=== PATIENT | female | born 1995 | race Asian ===

== ENCOUNTER 2016-05-02 17:17 | Inpatient (IN) | payer OTHER ==
[2016-05-02 18:41] LABS: Urine Bacteria Absent (Absent); Urine Bilirubin Negative (Negative); Urine Glucose Negative (Negative); Urine Nitrite Negative (Negative)
--- NOTE | 2016-05-02 18:47 | ED ---
Annelise Castaneda Anna, scribed for Mick Cartagena MD on 05/02/16 at 1743 . Psychiatric Complaint - HPI Summary HPI Summary: Patient is a 20 y/o female BIBA to [facility] presenting with gradual onset of intermittent suicidal ideation. If she were to hurt herself, she says she would do it with a knife. Her counselor recommended that she come to the ED to be evaluated. She currently takes hydroxyzine and fluoxetine for her depression. She denies a chance of . LNMP 2 days ago. - History Of Current Complaint Chief Complaint: EDMentalHealth Time Seen by Provider: 05/02/16 17:19 Hx Obtained From: Patient, EMS ?: No Onset/Duration: Gradual Onset Has Suicidal: Reports: Thoughts, With A Plan PMH/Surg Hx/FS Hx/Imm Hx Respiratory History: Denies: Hx Lung Cancer Psychiatric History: Reports: Hx Depression - Family History Known Family History: Negative: Cardiac Disease - Social History Occupation: Student Lives: With Family Alcohol Use: None Hx Substance Use: No Substance Use Type: Reports: None Hx Tobacco Use: No Smoking Status (MU): Never Smoked Tobacco Review of Systems Constitutional: Negative Psychological: Other - Suicidal Ideation Positive: Depressed All Other Systems Reviewed And Are Negative: Yes Physical Exam Triage Information Reviewed: Yes Vital Signs On Initial Exam: Initial Vitals Temp Pulse Resp BP Pulse Ox 98.7 F 72 16 97/64 99 05/02/16 17:39 05/02/16 17:39 05/02/16 17:39 05/02/16 17:39 05/02/16 17:39 Vital Signs Reviewed: Yes Appearance: Positive: Well-Appearing, No Pain Distress Skin: Positive: Warm, Skin Color Reflects Adequate Perfusion, Dry Head/Face: Positive: Normal Head/Face Inspection Eyes: Positive: Normal ENT: Positive: Normal ENT inspection Neck: Positive: Supple, Nontender Respiratory/Lung Sounds: Positive: Clear to Auscultation, Breath Sounds Present Cardiovascular: Positive: RRR Abdomen Description: Positive: Nontender, Soft Bowel Sounds: Positive: Present Musculoskeletal: Positive: Normal Neurological: Positive: Normal Psychiatric: Positive: Affect/Mood Appropriate Diagnostics - Vital Signs Vital Signs Temp Pulse Resp BP Pulse Ox 05/02/16 18:03 98.7 F 72 16 97/64 99 05/02/16 17:39 98.7 F 72 16 97/64 99 - Laboratory Lab Results: Lab Results 05/02/16 Range/Units 17:50 Urine Color Yellow Urine Appearance Clear Urine pH 7.0 (5-9) Ur Specific [place] 1.008 L (1.010-1.030) Urine Protein Negative (Negative) Urine Ketones Negative (Negative) Urine Blood 1+ H (Negative) Urine Nitrate Negative (Negative) Urine Bilirubin Negative (Negative) Urine Urobilinogen Negative (Negative) Ur Leukocyte Esterase Trace H (Negative) Urine WBC (Auto) Trace(0-5/hpf) (Absent) Urine RBC (Auto) Trace(0-2/hpf) (Absent) Ur Squamous Epith Cells Present H (Absent) Urine Bacteria Absent (Absent) Urine Glucose Negative (Negative) Lab Statement: Any lab studies that have been ordered have been reviewed, and results considered in the medical decision making process. Course/Dx - Course Course Of Treatment: She is medically cleared for MHE. - Differential Dx/Clinical Impression Provider Diagnosis: Depression Discharge - Discharge Plan Condition: Stable Disposition: OTHER Discharge Disposition Comment: Dr. Murphy at change of shift The documentation as recorded by the Annelise garcia Anna accurately reflects the service I personally performed and the decisions made by , Mick Cartagena MD.
[2016-05-02 18:51] LABS: Hematocrit 37 % (35-47); Hemoglobin 12.2 g/dl (12.0-16.0); Mean Corpuscular HGB Conc 33 g/dl (31-36); Mean Corpuscular Hemoglobin 30 pg (27-31); Mean Corpuscular Volume 89 fL (80-97); Mean Platelet Volume 9 um3 (7.4-10.4); Red Blood Count 4.14 10^6/ul (4.0-5.4); Red Cell Distribution Width 13 % (10.5-15); White Blood Count 4.7 10^3/ul (3.5-10.8)
[2016-05-02 19:08] LABS: Benzodiazepine Urine Screen None Detected (None Detect)
[2016-05-02 19:27] LABS: TSH (Thyroid Stimulating Horm) 0.67 mcIU/mL (0.34-5.60)
[2016-05-02 19:28] LABS: ALT 7 U/L (7-52); AST 12 U/L (13-39); Albumin 4.2 g/dL (3.2-5.2); Alkaline Phosphatase 44 U/L (34-104); Anion Gap 6 mmol/L (2-11); BUN/Creatinine Ratio 14.8 (8-20); Blood Urea Nitrogen 9 mg/dL (6-24); CO2 Carbon Dioxide 24 mmol/L (22-32); Calcium 9.2 mg/dL (8.6-10.3); Chloride 106 mmol/L (101-111); EGFR African American 162.5 (>60); EGFR Non-African American 126.4 (>60); Globulin 2.7 g/dL (2-4); Glucose 95 mg/dL (70-100); Potassium 3.6 mmol/L (3.5-5.0); Sodium 136 mmol/L (133-145); Total Protein 6.9 g/dL (6.4-8.9)
[2016-05-02 19:34] LABS: Acetaminophen < 15 mcg/mL; Alcohol < 10 mg/dL (<10); Salicylate < 2.50 mg/dL (<30)
[2016-05-02] MEDS ORDERED: hydrOXYzine HCL TAB* 10 MG PO PRN (21:21)
[2016-05-02] MEDS: hydrOXYzine HCL TAB* 10 MG PO SCH (22:08)
[2016-05-03] MEDS: FLUoxetine CAP* 20 MG PO SCH (09:38)
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
[2016-05-03] MEDS: hydrOXYzine HCL TAB* 10 MG PO SCH (21:33)
[2016-05-04] MEDS: FLUoxetine CAP* 20 MG PO SCH (08:46)
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
[2016-05-04] MEDS: hydrOXYzine HCL TAB* 10 MG PO SCH (20:16)
[2016-05-05 08:02] VITALS: BP 93/61
[2016-05-05] MEDS: FLUoxetine CAP* 20 MG PO SCH (08:21)
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
== END 2016-05-05 11:30 | disposition home or self-care (01) | DRG 880 ==
LOC: ED 17:17 → BSU 20:26
PROVIDERS: ADMIT Internal Medicine; ATTEND Psychiatry & Neurology Psychiatry
DX: F43.0 Acute stress reaction (principal); F50.9 Eating disorder, unspecified; F32.9 Major depressive disorder, single episode, unspecified; F60.3 Borderline personality disorder; Z91.410 Personal history of adult physical and sexual abuse; F40.01 Agoraphobia with panic disorder; Z91.5 Personal history of self-harm
CPT/HCPCS: 36415; 80053; 80307; 80320; 80329; 81003; 81015; 84443; 84702; 85025; 87086; 96102; 99222; 99231; 99238; A9270-GY; G0480

== ENCOUNTER → 2018-05-02 21:04 | Emergency (ER) | payer OTHER ==
--- NOTE | 2018-05-02 21:34 | ED ---
Allergic Reaction/Systemic - HPI Summary HPI Summary: This patient is a 22 year old female presenting to [facility] accompanied by friend with a chief complaint of insect sting since 1 hour ago. Patient states she found a flying ant on her finger, which she swatted. Patient was then bitten on her right index finger, which began to swell and darlene. The pain is rated 6/ 10 in severity. Symptoms aggravated by nothing. Symptoms alleviated by nothing. - History of Current Complaint Chief Complaint: EDRashSkinAbscess Time Seen by Provider: 05/02/18 21:25 Hx Obtained From: Patient Onset/Duration: Started hours ago, Still Present Timing: Constant Severity Currently: Mild Pain Intensity: 6 Pain Scale Used: 0-10 Numeric Location: Discrete @ - left index finger Character: Swelling, Pain Aggravating Factor(s): Nothing Alleviating Factor(s): Nothing Associated Signs And Symptoms: Positive: Negative - Fever - Allergies/Home Medications Allergies/Adverse Reactions: Allergies Allergy/AdvReac Type Severity Reaction Status Date / Time No Known Allergies Allergy Verified 05/02/18 21:14 PMH/Surg Hx/FS Hx/Imm Hx Previously Healthy: Yes Respiratory History: Denies: Hx Lung Cancer Sensory History: Reports: Hx Contacts or Glasses Denies: Hx Hearing Aid Opthamlomology History: Reports: Hx Contacts or Glasses Psychiatric History: Reports: Hx Anxiety, Hx Eating Disorder, Hx Depression, Hx Community Mental Health Tx - through school Denies: Hx Inpatient Treatment, Hx of Violent Episodes Against Others Infectious Disease History: No Infectious Disease History: Denies: Hx of Known/Suspected MRSA, Traveled Outside the [place] in Last 30 Days - Family History Known Family History: Negative: Cardiac Disease - Social History Occupation: Student Alcohol Use: None Hx Substance Use: No Substance Use Type: Reports: None Hx Tobacco Use: No Smoking Status (MU): Never Smoked Tobacco Review of Systems Negative: Fever Positive: Other - swelling and redness on left index finger All Other Systems Reviewed And Are Negative: Yes Physical Exam - Summary Physical Exam Summary: Appearance: Well-appearing, Well-nourished, lying in bed comfortable Skin: Warm, dry, Left index finger, mild fusiform swelling, Mild erythema Eyes: sclera anicteric, no conjunctival pallor ENT: mucous membranes moist Neck: deferred Respiratory: No signs of respiratory distress Cardiovascular: Appears well perfused, pulses are nml Abdomen: deferred Musculoskeletal: Moving all 4 extremities without obvious discomfort Neurological: Awake and alert, mentation is normal, speech is fluent and appropriate Psychiatric: affect is normal, does not appear anxious or depressed Triage Information Reviewed: Yes Vital Signs On Initial Exam: Initial Vitals Temp Pulse Resp BP Pulse Ox 99.1 F 78 16 130/74 98 05/02/18 21:12 05/02/18 21:12 05/02/18 21:12 05/02/18 21:12 05/02/18 21:12 Vital Signs Reviewed: Yes Diagnostics - Vital Signs Vital Signs Temp Pulse Resp BP Pulse Ox 05/02/18 21:12 99.1 F 78 16 130/74 98 - Laboratory Lab Statement: Any lab studies that have been ordered have been reviewed, and results considered in the medical decision making process. Allergic Reaction Course/Dx - Course Course Of Treatment: This patient is a 22 year old female presenting to [facility] accompanied by friend with a chief complaint of insect sting since 1 hour ago. Patient states she found a flying ant on her finger, which she swatted. Patient was then bitten on her right index finger, which began to swell and darlene. Informed patient of wasp sting and proper care, including ice and OTC Benadryl. Patient was instructed to return to ED in case of late-onset allergic reaction, if swelling begins to worsen. Patient will be discharged with a dx of wasp sting. Patient is advised to follow up with PCP as needed. The patient is agreeable with this plan. - Diagnoses Provider Diagnoses: Wasp sting Discharge - Sign-Out/Discharge Documenting (check all that apply): Patient Departure - Discharge Patient Received Moderate/Deep Sedation with Procedure: No - Discharge Plan Condition: Stable Disposition: HOME Patient Education Materials: Insect Bite or Sting (ED) Referrals: [facility] [Outside] No Primary Care Phys,NOPCP [Primary Care Provider] - Additional Instructions: Treatment for tonight is just ice, benadryl and elevation. Most stings are much better the next day. Occasionally there is a secondary reaction a few days later that can be treated with steroids, so if seems to be healing but then over the weekend gets a lot more swollen and red you should have it checked out. - Billing Disposition and Condition Condition: STABLE Disposition: Home - Attestation Statements Document Initiated by Scribe: Yes Documenting Scribe: Rupert Rodrigues Provider For Whom Bucky is Documenting (Include Credential): Mick Romero MD Scribe Attestation: I, eben Dyeribed for Mick Romero MD on 05/03/18 at 0435. Scribe Documentation Reviewed: Yes Provider Attestation: The documentation as recorded by the Rupert garcia accurately reflects the service I personally performed and the decisions made by me, Mick Romero MD Status of Scribe Document: Viewed
[2018-05-02 22:12] VITALS: BP 118/68
== END | disposition home or self-care (01) ==
LOC: ED 21:04
DX: T63.461A Toxic effect of venom of wasps, accidental (unintentional), initial encounter (principal); M79.89 Other specified soft tissue disorders; Y92.9 Unspecified place or not applicable
CPT/HCPCS: 99281